=== PATIENT | female | born 1955 | race Caucasian/White ===

== ENCOUNTER 2017-07-08 06:03 | Day surgery (SDC) | payer MEDICAID ==
[~2017-07-08] VITALS: Ht 170.2 cm; Wt 116.1 kg
[~2017-07-08 06:03] MED LIST: ATOR10 PO; CYCL5TAB PO; ESTR1PAT87 PO; GABA-529 PO; LEVO75TA10 PO; LORA2TAB2 PO; VENL100T4 PO; VENL75TA63 PO
[2017-07-08] MEDS ORDERED: SODIUM CHLORIDE 0.9% 1000ML 1,000 ML IV ONE (06:04)
[2017-07-08 07:06] VITALS: BP 148/80
[2017-07-08] MEDS ORDERED: MVIT PO (07:19)
[2017-07-08] MEDS ORDERED: VITA100C5 PO (07:19)
[2017-07-08] MEDS ORDERED: FENTANYL CITRATE PF 50 MCG/1 ML 2ML VIAL ONE (09:19)
[2017-07-08] MEDS ORDERED: PROPOFOL 10 MG/ML 20ML VIAL IV ONE (09:19)
[2017-07-08 09:54] VITALS: BP 150/85
== END 2017-07-08 10:24 | disposition home or self-care (01) ==
LOC: DAH 06:03 → ENDO 06:03
PROVIDERS: ATTEND Internal Medicine
DX: D12.0 Benign neoplasm of cecum (principal); K31.9 Disease of stomach and duodenum, unspecified; K29.50 Unspecified chronic gastritis without bleeding; K21.9 Gastro-esophageal reflux disease without esophagitis; L53.8 Other specified erythematous conditions; R13.10 Dysphagia, unspecified; D17.5 Benign lipomatous neoplasm of intra-abdominal organs; K64.8 Other hemorrhoids; K57.30 Diverticulosis of large intestine without perforation or abscess without bleeding; Z79.899 Other long term (current) drug therapy; E78.4 Other hyperlipidemia; F41.8 Other specified anxiety disorders; M19.90 Unspecified osteoarthritis, unspecified site; E03.8 Other specified hypothyroidism
CPT/HCPCS: 43239; 45385; 88305; 88312; A4606; A4649; J2704; J3010; J7030

== ENCOUNTER 2020-05-18 20:59 | Inpatient (IN) | payer MEDICARE ==
[~2020-05-18] VITALS: Ht 170.2 cm; Wt 126.7 kg
[~2020-05-18 20:59] MED LIST changes: +MVIT PO; +VENL-191 PO; -VENL75TA63 PO; +VITA100C5 PO
[2020-05-18 21:25] LABS: BASOPHILS % (AUTO) 0.2 % (0.0-5.0); EOSINOPHILS % (AUTO) 2.7 % (0.0-8.0); HEMATOCRIT 44.1 % (36-48); LYMPHOCYTES % (AUTO) 14.7 % (21.0-51.0); MEAN CORPUSCULAR HEMOGLOBIN 28.1 pg (27.0-33.0); MEAN CORPUSCULAR HGB CONC 31.1 g/dL (32.0-36.0); MEAN CORPUSCULAR VOLUME 90.6 fL (79-99); MONOCYTES % (AUTO) 5.9 % (3.0-13.0); NEUTROPHILS % (AUTO) 76.1 % (40.0-77.0); PLATELET COUNT (AUTO) 290 K/uL (130-400); RED BLOOD CELL COUNT(AUTO) 4.87 MIL/uL (4.00-5.50); WHITE BLOOD COUNT (AUTO) 17.6 K/uL (4.8-10.8)
[2020-05-18 21:26] LABS: APPEARANCE,URINE Clear (CLEAR); BILIRUBIN,URINE Negative (NEGATIVE); COLOR,URINE Yellow (YELLOW); GLUCOSE, URINE (UA) Negative (NEGATIVE); KETONES,URINE Negative (NEGATIVE); LEUKOCYTE ESTERASE ,URINE Large (NEGATIVE); NITRATE,URINE Negative (NEGATIVE); OCCULT BLOOD,URINE Small (NEGATIVE); PROTEIN,URINE Negative (NEGATIVE); UROBILINOGEN,URINE 0.2 mg/dL (0.2-1.0)
[2020-05-18 21:36] LABS: BACTERIA,URINE Few /HPF (None Seen); SQUAMOUS EPITHELIAL CELL,UR Few /HPF (0-2)
[2020-05-18 22:13] LABS: CREATININE 0.9 mg/dL (0.5-1.5); POTASSIUM 4.1 mmol/L (3.5-5.1)
[2020-05-18 22:18] LABS: ALBUMIN 2.4 g/dL (3.5-5.0); BILIRUBIN,TOTAL 0.3 mg/dL (0.2-1.0); TOTAL PROTEIN, SERUM 6.6 g/dL (6.0-8.3)
[2020-05-18] MEDS ORDERED: IOHEXOL-350 75 ML VIAL IV ONE (22:26)
[2020-05-19] VITALS (7 sets, daily range): BP systolic 86–140; BP diastolic 46–75
[2020-05-19] MEDS ORDERED: ZOSYN 3.375GM+NS 50ML 50 ML IV ONE ×3 (00:12→14:16)
[2020-05-19] MEDS ORDERED: ONDANSETRON 4MG INJ ONE (00:34)
[2020-05-19] MEDS ORDERED: FENTANYL CITRATE PF 50 MCG/1 ML 2ML VIAL ONE (00:35)
[2020-05-19] MEDS ORDERED: ONDANSETRON 4MG INJ IVP PRN (01:00)
[2020-05-19] MEDS: 0.9%NACL 1000ML 1,000 ML IV SCH ×3 (01:00→21:00)
[2020-05-19] MEDS ORDERED: MORPHINE 4 MG SYG IVP PRN (01:00)
[2020-05-19] MEDS ORDERED: MORPHINE 2 MG SYG IVP PRN (01:00)
[2020-05-19] MEDS ORDERED: PANT40SU PO (03:19)
[2020-05-19] MEDS ORDERED: LEVO100C4 PO (03:19)
[2020-05-19] MEDS ORDERED: NAPR-1023 PO (03:19)
[2020-05-19 05:40] LABS: HEMATOCRIT 39.4 % (36-48); MEAN CORPUSCULAR VOLUME 90.6 fL (79-99); PLATELET COUNT (AUTO) 274 K/uL (130-400); RED BLOOD CELL COUNT(AUTO) 4.35 MIL/uL (4.00-5.50); WHITE BLOOD COUNT (AUTO) 14.4 K/uL (4.8-10.8)
[2020-05-19] MEDS: PIP/TAZ ZOSYN 3.375G 3.375 GM VIAL IV SCH ×3 (05:50→22:00)
[2020-05-19 06:11] LABS: ALBUMIN 2.5 g/dL (3.5-5.0); BILIRUBIN,TOTAL 0.5 mg/dL (0.2-1.0); CREATININE 0.8 mg/dL (0.5-1.5); POTASSIUM 4.2 mmol/L (3.5-5.1); TOTAL PROTEIN, SERUM 6.7 g/dL (6.0-8.3)
[2020-05-19 06:37] LABS: CRP QUANTITATIVE 161.8 mg/L (0.00-9.0)
[2020-05-19 06:52] LABS: ERYTHROCYTE SEDIMENTATION RATE 65 MM/HR (0-30)
[2020-05-19] MEDS: ZOSYN 3.375GM+NS 50ML 50 ML IV SCH (22:11)
[2020-05-19] MEDS: HYDROMORPHONE 0.5 MG SYG (0.5MG/0.5ML) IVP PRN (22:17)
[2020-05-20] MEDS: 0.9%NACL 1000ML 1,000 ML IV SCH ×4 (02:33→20:04)
[2020-05-20] MEDS: HYDROMORPHONE 2 MG VIAL (2MG/ML) IVP PRN ×2 (02:34→09:43)
[2020-05-20 04:21] VITALS: BP 115/62
[2020-05-20] MEDS: ZOSYN 3.375GM+NS 50ML 50 ML IV SCH ×3 (05:11→20:03)
[2020-05-20 05:45] LABS: BASOPHILS % (AUTO) 0.2 % (0.0-5.0); EOSINOPHILS % (AUTO) 2.2 % (0.0-8.0); HEMATOCRIT 39.6 % (36-48); LYMPHOCYTES % (AUTO) 17.3 % (21.0-51.0); MEAN CORPUSCULAR HEMOGLOBIN 27.8 pg (27.0-33.0); MEAN CORPUSCULAR HGB CONC 30.3 g/dL (32.0-36.0); MEAN CORPUSCULAR VOLUME 91.9 fL (79-99); MONOCYTES % (AUTO) 5.4 % (3.0-13.0); NEUTROPHILS % (AUTO) 74.6 % (40.0-77.0); PLATELET COUNT (AUTO) 281 K/uL (130-400); RED BLOOD CELL COUNT(AUTO) 4.31 MIL/uL (4.00-5.50); WHITE BLOOD COUNT (AUTO) 12.5 K/uL (4.8-10.8)
[2020-05-20 06:01] LABS: ALBUMIN 2.5 g/dL (3.5-5.0); BILIRUBIN,TOTAL 0.5 mg/dL (0.2-1.0); CREATININE 0.8 mg/dL (0.5-1.5); TOTAL PROTEIN, SERUM 7.1 g/dL (6.0-8.3)
[2020-05-20 08:10] VITALS: BP 140/61
[2020-05-20 11:53] VITALS: BP 124/70
[2020-05-20] MEDS: FLUCONAZOLE 200 MG/NS 100 ML 100 ML IV SCH (13:39)
[2020-05-20] MEDS: HYDROMORPHONE 0.5 MG SYG (0.5MG/0.5ML) IVP PRN (14:40)
[2020-05-20 16:31] VITALS: BP 114/61
[2020-05-20] MEDS: ONDANSETRON 4MG INJ IVP PRN (19:45)
[2020-05-20 20:16] VITALS: BP 120/63
[2020-05-20 23:37] VITALS: BP 153/82
[2020-05-21] MEDS: 0.9%NACL 1000ML 1,000 ML IV SCH ×3 (02:37→23:30)
[2020-05-21 04:13] VITALS: BP 128/69
[2020-05-21 05:14] LABS: BASOPHILS % (AUTO) 0.2 % (0.0-5.0); EOSINOPHILS % (AUTO) 1.6 % (0.0-8.0); HEMATOCRIT 38.8 % (36-48); LYMPHOCYTES % (AUTO) 14.4 % (21.0-51.0); MEAN CORPUSCULAR HEMOGLOBIN 28.4 pg (27.0-33.0); MEAN CORPUSCULAR HGB CONC 31.2 g/dL (32.0-36.0); MEAN CORPUSCULAR VOLUME 91.1 fL (79-99); MONOCYTES % (AUTO) 4.9 % (3.0-13.0); NEUTROPHILS % (AUTO) 78.5 % (40.0-77.0); PLATELET COUNT (AUTO) 266 K/uL (130-400); RED BLOOD CELL COUNT(AUTO) 4.26 MIL/uL (4.00-5.50); RED CELL DISTRIBUTION WIDTH 12.7 % (11.0-15.5); WHITE BLOOD COUNT (AUTO) 11.1 K/uL (4.8-10.8)
[2020-05-21 05:28] LABS: ALBUMIN 2.3 g/dL (3.5-5.0); BILIRUBIN,TOTAL 0.4 mg/dL (0.2-1.0); CREATININE 0.8 mg/dL (0.5-1.5); POTASSIUM 3.6 mmol/L (3.5-5.1); TOTAL PROTEIN, SERUM 6.8 g/dL (6.0-8.3)
[2020-05-21] MEDS: ZOSYN 3.375GM+NS 50ML 50 ML IV SCH ×3 (05:58→20:54)
[2020-05-21] MEDS ORDERED: IOHEXOL 350 MG/ML 100ML INFUS..BTL IV ONE (07:43)
[2020-05-21 08:06] VITALS: BP 125/55
[2020-05-21 11:23] VITALS: BP 155/69
[2020-05-21] MEDS: FLUCONAZOLE 200 MG/NS 100 ML 100 ML IV SCH (12:05)
[2020-05-21] MEDS: ONDANSETRON 4MG INJ IVP PRN ×3 (12:12→20:53)
[2020-05-21 16:32] VITALS: BP 135/70
[2020-05-21] MEDS: HYDROMORPHONE 0.5 MG SYG (0.5MG/0.5ML) IVP PRN (17:15)
[2020-05-21 20:00] VITALS: BP 160/92
[2020-05-21] MEDS ORDERED: HYDROMORPHONE 2 MG VIAL (2MG/ML) ONE (20:49)
[2020-05-21] MEDS ORDERED: ONDANSETRON 4MG INJ IVP SCH (21:00)
[2020-05-21] MEDS ORDERED: HYDROMORPHONE 1 MG INJ IVP SCH (21:00)
[2020-05-22 00:04] VITALS: BP 118/52
[2020-05-22] MEDS: ONDANSETRON 4MG INJ IVP PRN ×2 (03:18→13:34)
[2020-05-22 04:08] VITALS: BP 143/79
[2020-05-22] MEDS: ZOSYN 3.375GM+NS 50ML 50 ML IV SCH ×3 (05:08→21:22)
[2020-05-22 05:09] LABS: BASOPHILS % (AUTO) 0.1 % (0.0-5.0); EOSINOPHILS % (AUTO) 0.2 % (0.0-8.0); HEMATOCRIT 40.3 % (36-48); LYMPHOCYTES % (AUTO) 7.4 % (21.0-51.0); MEAN CORPUSCULAR HEMOGLOBIN 27.9 pg (27.0-33.0); MEAN CORPUSCULAR HGB CONC 31.3 g/dL (32.0-36.0); MEAN CORPUSCULAR VOLUME 89.2 fL (79-99); MONOCYTES % (AUTO) 4.2 % (3.0-13.0); NEUTROPHILS % (AUTO) 87.5 % (40.0-77.0); PLATELET COUNT (AUTO) 270 K/uL (130-400); RED BLOOD CELL COUNT(AUTO) 4.52 MIL/uL (4.00-5.50); RED CELL DISTRIBUTION WIDTH 12.4 % (11.0-15.5); WHITE BLOOD COUNT (AUTO) 14.7 K/uL (4.8-10.8)
[2020-05-22 05:34] LABS: ALBUMIN 2.4 g/dL (3.5-5.0); BILIRUBIN,TOTAL 0.4 mg/dL (0.2-1.0); CREATININE 0.7 mg/dL (0.5-1.5); CRP QUANTITATIVE 102.6 mg/L (0.00-9.0); POTASSIUM 3.5 mmol/L (3.5-5.1); TOTAL PROTEIN, SERUM 7.2 g/dL (6.0-8.3)
[2020-05-22 08:33] VITALS: BP 155/62
[2020-05-22] MEDS: 0.9%NACL 1000ML 1,000 ML IV SCH ×2 (09:00→20:22)
[2020-05-22 11:22] VITALS: BP 146/73
[2020-05-22] MEDS: FLUCONAZOLE 200 MG/NS 100 ML 100 ML IV SCH (11:49)
[2020-05-22] MEDS: HYDROMORPHONE 2 MG VIAL (2MG/ML) IVP PRN (11:49)
[2020-05-22 16:17] VITALS: BP 131/77
[2020-05-22] MEDS ORDERED: ONDANSETRON 4MG INJ IVP SCH (17:40)
[2020-05-22 20:16] VITALS: BP 169/79
[2020-05-22] MEDS: FAMOTIDINE 20MG VIAL IV SCH (20:23)
[2020-05-22] MEDS: ATORVASTATIN 10 MG TABLET PO SCH (20:27)
[2020-05-22] MEDS: LORAZEPAM 2 MG TABLET PO SCH (20:27)
[2020-05-23] VITALS (7 sets, daily range): BP systolic 117–167; BP diastolic 45–94
[2020-05-23] MEDS ORDERED: LABETALOL 20MG SYG IV PRN (01:00)
[2020-05-23] MEDS: 0.9%NACL 1000ML 1,000 ML IV SCH ×2 (04:14→15:00)
[2020-05-23 05:16] LABS: BASOPHILS % (AUTO) 0.2 % (0.0-5.0); EOSINOPHILS % (AUTO) 1.5 % (0.0-8.0); HEMATOCRIT 38.6 % (36-48); LYMPHOCYTES % (AUTO) 14.3 % (21.0-51.0); MEAN CORPUSCULAR HEMOGLOBIN 27.9 pg (27.0-33.0); MEAN CORPUSCULAR HGB CONC 31.6 g/dL (32.0-36.0); MEAN CORPUSCULAR VOLUME 88.3 fL (79-99); MONOCYTES % (AUTO) 5.1 % (3.0-13.0); NEUTROPHILS % (AUTO) 78.5 % (40.0-77.0); PLATELET COUNT (AUTO) 322 K/uL (130-400); RED BLOOD CELL COUNT(AUTO) 4.37 MIL/uL (4.00-5.50); RED CELL DISTRIBUTION WIDTH 12.3 % (11.0-15.5); WHITE BLOOD COUNT (AUTO) 11.4 K/uL (4.8-10.8)
[2020-05-23] MEDS: ZOSYN 3.375GM+NS 50ML 50 ML IV SCH ×3 (05:46→20:49)
[2020-05-23 05:47] LABS: CREATININE 0.6 mg/dL (0.5-1.5); POTASSIUM 3.6 mmol/L (3.5-5.1)
[2020-05-23] MEDS: LEVOTHYROXINE 100 MCG TABLET PO SCH (06:41)
[2020-05-23] MEDS ORDERED: VENLAFAXINE HCL 150 MG PO SCH (09:00)
[2020-05-23] MEDS ORDERED: VENLAFAXINE HCL 75 MG TAB PO SCH (09:00)
[2020-05-23] MEDS: FAMOTIDINE 20MG VIAL IV SCH ×2 (09:53→20:49)
[2020-05-23] MEDS: ONDANSETRON 4MG INJ IVP PRN (11:52)
[2020-05-23] MEDS: FLUCONAZOLE 200 MG/NS 100 ML 100 ML IV SCH (13:54)
[2020-05-23] MEDS: ATORVASTATIN 10 MG TABLET PO SCH (20:48)
[2020-05-23] MEDS: LORAZEPAM 2 MG TABLET PO SCH (20:50)
[2020-05-24] VITALS (7 sets, daily range): BP systolic 123–153; BP diastolic 59–85
[2020-05-24] MEDS: 0.9%NACL 1000ML 1,000 ML IV SCH ×3 (01:00→21:20)
[2020-05-24] MEDS: ZOSYN 3.375GM+NS 50ML 50 ML IV SCH ×3 (06:22→21:20)
[2020-05-24] MEDS ORDERED: IOHEXOL-350 75 ML VIAL IV ONE (08:44)
[2020-05-24] MEDS ORDERED: VENLAFAXINE HCL 75 MG TAB PO SCH (09:00)
[2020-05-24] MEDS: FAMOTIDINE 20MG VIAL IV SCH ×2 (10:48→21:20)
[2020-05-24] MEDS: VENLAFAXINE HCL 75 MG TAB PO SCH (10:49)
[2020-05-24] MEDS: LEVOTHYROXINE 100 MCG TABLET PO SCH (10:50)
[2020-05-24] MEDS: FLUCONAZOLE 200 MG/NS 100 ML 100 ML IV SCH (13:19)
[2020-05-24] MEDS: ATORVASTATIN 10 MG TABLET PO SCH (21:20)
[2020-05-24] MEDS: LORAZEPAM 2 MG TABLET PO SCH (21:20)
[2020-05-25 04:00] VITALS: BP 150/81
[2020-05-25] MEDS: LEVOTHYROXINE 100 MCG TABLET PO SCH (05:16)
[2020-05-25] MEDS: ZOSYN 3.375GM+NS 50ML 50 ML IV SCH ×3 (05:16→20:37)
[2020-05-25 06:01] LABS: BASOPHILS % (AUTO) 0.2 % (0.0-5.0); EOSINOPHILS % (AUTO) 3.7 % (0.0-8.0); HEMATOCRIT 40.1 % (36-48); LYMPHOCYTES % (AUTO) 16.8 % (21.0-51.0); MEAN CORPUSCULAR HEMOGLOBIN 28.1 pg (27.0-33.0); MEAN CORPUSCULAR HGB CONC 32.2 g/dL (32.0-36.0); MEAN CORPUSCULAR VOLUME 87.4 fL (79-99); MONOCYTES % (AUTO) 6.1 % (3.0-13.0); NEUTROPHILS % (AUTO) 72.8 % (40.0-77.0); PLATELET COUNT (AUTO) 333 K/uL (130-400); RED BLOOD CELL COUNT(AUTO) 4.59 MIL/uL (4.00-5.50); RED CELL DISTRIBUTION WIDTH 12.5 % (11.0-15.5); WHITE BLOOD COUNT (AUTO) 8.6 K/uL (4.8-10.8)
[2020-05-25 06:23] LABS: CREATININE 0.8 mg/dL (0.5-1.5)
[2020-05-25 06:34] LABS: POTASSIUM 2.9 mmol/L (3.5-5.1)
[2020-05-25] MEDS: 0.9%NACL 1000ML 1,000 ML IV SCH ×2 (07:00→17:00)
[2020-05-25] MEDS: POTASSIUM CHLORIDE 10% ELIXIR 20 MEQ/15 ML UDCUP PO SCH ×2 (07:15→14:00)
[2020-05-25] MEDS ORDERED: POTASSIUM CHLORIDE 20MEQ/100ML 100 ML IV PRN (07:15)
[2020-05-25] MEDS ORDERED: LIDOCAINE HCL-MPF 1% 2ML VIAL IV PRN (07:15)
[2020-05-25 08:00] VITALS: BP 151/82
[2020-05-25] MEDS: FAMOTIDINE 20MG VIAL IV SCH ×2 (09:07→20:37)
[2020-05-25] MEDS: VENLAFAXINE HCL 75 MG TAB PO SCH (09:08)
[2020-05-25] MEDS: KCL 20 MEQ ERTAB PO PRN ×4 (09:09→18:15)
[2020-05-25 11:05] VITALS: BP 163/95
[2020-05-25] MEDS: FLUCONAZOLE 200 MG/NS 100 ML 100 ML IV SCH (12:51)
[2020-05-25 16:12] VITALS: BP 156/89
[2020-05-25 20:09] VITALS: BP 124/81
[2020-05-25] MEDS: ATORVASTATIN 10 MG TABLET PO SCH (20:37)
[2020-05-25] MEDS: POTASSIUM CHLORIDE 10% ELIXIR 20 MEQ/15 ML UDCUP PO PRN ×2 (20:40→21:35)
[2020-05-25] MEDS: LORAZEPAM 2 MG TABLET PO SCH (20:40)
[2020-05-25] MEDS: HYDROMORPHONE 2 MG VIAL (2MG/ML) IVP PRN (23:29)
[2020-05-25 23:43] VITALS: BP 151/75
[2020-05-26] MEDS: 0.9%NACL 1000ML 1,000 ML IV SCH ×2 (03:00→13:00)
[2020-05-26 03:40] VITALS: BP 123/69
[2020-05-26] MEDS: ZOSYN 3.375GM+NS 50ML 50 ML IV SCH ×3 (05:44→21:53)
[2020-05-26] MEDS: HYDROMORPHONE 2 MG VIAL (2MG/ML) IVP PRN ×3 (06:25→21:55)
[2020-05-26] MEDS: POTASSIUM CHLORIDE 10% ELIXIR 20 MEQ/15 ML UDCUP PO SCH ×2 (07:15→14:00)
[2020-05-26] MEDS ORDERED: IOHEXOL-350 75 ML VIAL IV ONE (07:16)
[2020-05-26] MEDS ORDERED: DIATR MEGLU/DIATRIZOATE SODIUM 30 ML BOTTLE ONE (07:16)
[2020-05-26] MEDS: LEVOTHYROXINE 100 MCG TABLET PO SCH (07:30)
[2020-05-26 07:52] LABS: HEMATOCRIT 41.5 % (36-48); MEAN CORPUSCULAR HEMOGLOBIN 28.1 pg (27.0-33.0); MEAN CORPUSCULAR VOLUME 87.7 fL (79-99); RED BLOOD CELL COUNT(AUTO) 4.73 MIL/uL (4.00-5.50); WHITE BLOOD COUNT (AUTO) 12.2 K/uL (4.8-10.8)
[2020-05-26 08:00] VITALS: BP 125/77
[2020-05-26 08:09] LABS: CREATININE 0.8 mg/dL (0.5-1.5); POTASSIUM 3.9 mmol/L (3.5-5.1)
[2020-05-26] MEDS: VENLAFAXINE HCL 75 MG TAB PO SCH (09:00)
[2020-05-26] MEDS ORDERED: IOHEXOL 350 MG/ML 100ML INFUS..BTL IV ONE (11:40)
[2020-05-26 11:46] VITALS: BP 127/67
[2020-05-26] MEDS: FLUCONAZOLE 200 MG/NS 100 ML 100 ML IV SCH (13:13)
[2020-05-26] MEDS: FAMOTIDINE 20MG VIAL IV SCH ×2 (13:15→21:53)
[2020-05-26 16:00] VITALS: BP 121/71
[2020-05-26 19:46] VITALS: BP 135/57
[2020-05-26] MEDS: ATORVASTATIN 10 MG TABLET PO SCH (21:53)
[2020-05-26] MEDS: LORAZEPAM 2 MG TABLET PO SCH (21:53)
[2020-05-26 23:58] VITALS: BP 147/82
[2020-05-27] MEDS ORDERED: HYDROMORPHONE 0.5 MG SYG (0.5MG/0.5ML) ONE (04:26)
[2020-05-27] MEDS: 0.9%NACL 1000ML 1,000 ML IV SCH ×3 (04:33→19:00)
[2020-05-27] MEDS: ZOSYN 3.375GM+NS 50ML 50 ML IV SCH ×3 (04:34→21:36)
[2020-05-27 05:03] LABS: BASOPHILS % (AUTO) 0.1 % (0.0-5.0); EOSINOPHILS % (AUTO) 0.5 % (0.0-8.0); HEMATOCRIT 47.4 % (36-48); LYMPHOCYTES % (AUTO) 7.8 % (21.0-51.0); MEAN CORPUSCULAR HEMOGLOBIN 27.7 pg (27.0-33.0); MEAN CORPUSCULAR HGB CONC 31.2 g/dL (32.0-36.0); MEAN CORPUSCULAR VOLUME 88.6 fL (79-99); MONOCYTES % (AUTO) 4.9 % (3.0-13.0); NEUTROPHILS % (AUTO) 86.3 % (40.0-77.0); PLATELET COUNT (AUTO) 348 K/uL (130-400); RED BLOOD CELL COUNT(AUTO) 5.35 MIL/uL (4.00-5.50); RED CELL DISTRIBUTION WIDTH 13.1 % (11.0-15.5); WHITE BLOOD COUNT (AUTO) 14.7 K/uL (4.8-10.8)
[2020-05-27 05:22] VITALS: BP 139/84
[2020-05-27 05:31] LABS: CREATININE 0.9 mg/dL (0.5-1.5); POTASSIUM 3.3 mmol/L (3.5-5.1)
[2020-05-27] MEDS ORDERED: KETOROLAC 15MG/ML VIAL (15MG/ML) ONE (07:09)
[2020-05-27] MEDS: LEVOTHYROXINE 100 MCG TABLET PO SCH (07:14)
[2020-05-27 08:08] VITALS: BP 171/86
[2020-05-27] MEDS: POTASSIUM CHLORIDE 10% ELIXIR 20 MEQ/15 ML UDCUP PO SCH (08:19)
[2020-05-27] MEDS: VENLAFAXINE HCL 75 MG TAB PO SCH (09:51)
[2020-05-27] MEDS: FAMOTIDINE 20MG VIAL IV SCH ×2 (09:51→21:36)
[2020-05-27] MEDS: KCL 20 MEQ ERTAB PO PRN ×3 (09:54→12:38)
[2020-05-27] MEDS: FLUCONAZOLE 200 MG/NS 100 ML 100 ML IV SCH (10:24)
[2020-05-27 11:28] VITALS: BP 142/80
[2020-05-27] MEDS: HYDROMORPHONE 0.5 MG SYG (0.5MG/0.5ML) IVP PRN ×3 (12:47→21:36)
[2020-05-27 16:39] VITALS: BP 150/72
[2020-05-27] MEDS: KETOROLAC 15MG/ML VIAL (15MG/ML) IV PRN (17:59)
[2020-05-27 20:00] VITALS: BP 151/84
[2020-05-27] MEDS: LORAZEPAM 2 MG TABLET PO SCH (21:36)
[2020-05-27] MEDS: ATORVASTATIN 10 MG TABLET PO SCH (21:36)
[2020-05-27] MEDS: ONDANSETRON 4MG INJ IVP PRN (21:45)
[2020-05-27 23:52] VITALS: BP 137/72
[2020-05-28] MEDS: HYDROMORPHONE 0.5 MG SYG (0.5MG/0.5ML) IVP PRN ×4 (01:45→20:32)
[2020-05-28] MEDS: 0.9%NACL 1000ML 1,000 ML IV SCH ×2 (01:46→14:26)
[2020-05-28 04:00] VITALS: BP 150/79
[2020-05-28] MEDS: KETOROLAC 15MG/ML VIAL (15MG/ML) IV PRN ×2 (04:41→16:15)
[2020-05-28] MEDS: LEVOTHYROXINE 100 MCG TABLET PO SCH (06:05)
[2020-05-28] MEDS: ZOSYN 3.375GM+NS 50ML 50 ML IV SCH ×2 (06:05→14:24)
[2020-05-28 06:09] LABS: BASOPHILS % (AUTO) 0.3 % (0.0-5.0); EOSINOPHILS % (AUTO) 1.9 % (0.0-8.0); HEMATOCRIT 37.7 % (36-48); LYMPHOCYTES % (AUTO) 10.6 % (21.0-51.0); MEAN CORPUSCULAR HEMOGLOBIN 27.7 pg (27.0-33.0); MEAN CORPUSCULAR HGB CONC 31.6 g/dL (32.0-36.0); MEAN CORPUSCULAR VOLUME 87.7 fL (79-99); MONOCYTES % (AUTO) 7.3 % (3.0-13.0); NEUTROPHILS % (AUTO) 79.6 % (40.0-77.0); PLATELET COUNT (AUTO) 302 K/uL (130-400); WHITE BLOOD COUNT (AUTO) 10.3 K/uL (4.8-10.8)
[2020-05-28 06:37] LABS: CREATININE 0.7 mg/dL (0.5-1.5); POTASSIUM 3.7 mmol/L (3.5-5.1)
[2020-05-28] MEDS: POTASSIUM CHLORIDE 10% ELIXIR 20 MEQ/15 ML UDCUP PO SCH (08:57)
[2020-05-28 08:58] VITALS: BP 152/82
[2020-05-28] MEDS: FAMOTIDINE 20MG VIAL IV SCH ×2 (08:59→20:23)
[2020-05-28] MEDS: VENLAFAXINE HCL 75 MG TAB PO SCH (09:00)
[2020-05-28] MEDS: FLUCONAZOLE 200 MG/NS 100 ML 100 ML IV SCH (09:07)
[2020-05-28 11:45] VITALS: BP 90/53
[2020-05-28 16:20] VITALS: BP 149/78
[2020-05-28] MEDS: LORAZEPAM 2 MG TABLET PO SCH (20:23)
[2020-05-28] MEDS: ATORVASTATIN 10 MG TABLET PO SCH (20:23)
[2020-08-19] MEDS ORDERED: AMOX-429 PO (13:19)
[2021-01-12] MEDS ORDERED: ESOM40CA54 PO (14:08)
[2021-01-12] MEDS ORDERED: ONDA4TAB10 PO (14:08)
[2021-01-12] MEDS ORDERED: PROM25TA7 PO (14:08)
== END 2020-05-28 21:25 | DRG 391 ==
LOC: EDH 20:59 → EDHIP 21:00 → 3AH 05-19 02:17
PROVIDERS: ADMIT Internal Medicine; ATTEND Internal Medicine
DX: K57.20 Diverticulitis of large intestine with perforation and abscess without bleeding (principal); K65.1 Peritoneal abscess; Z68.41 Body mass index [BMI] 40.0-44.9, adult; Z20.822 Contact with and (suspected) exposure to COVID-19; E03.9 Hypothyroidism, unspecified; E66.01 Morbid (severe) obesity due to excess calories; E87.6 Hypokalemia; F32.9 Major depressive disorder, single episode, unspecified; F41.9 Anxiety disorder, unspecified; G89.4 Chronic pain syndrome; I10 Essential (primary) hypertension; K21.9 Gastro-esophageal reflux disease without esophagitis; K76.0 Fatty (change of) liver, not elsewhere classified; Z90.49 Acquired absence of other specified parts of digestive tract; Z90.710 Acquired absence of both cervix and uterus; Z82.3 Family history of stroke; Z83.3 Family history of diabetes mellitus; Z82.5 Family history of asthma and other chronic lower respiratory diseases; Z82.49 Family history of ischemic heart disease and other diseases of the circulatory system
CPT/HCPCS: 36415; 74177; 74178; 80048; 80053; 81001; 83605; 83690; 84132; 84145; 84443; 84484; 85025; 85027; 85651; 86140; 87040; 87088; 87426; 93005; G0378; J1170; J1450; J1885; J2405; J2543; J3010; J3480; J3490; J7030; Q9963; Q9967; U0003

== ENCOUNTER 2020-06-15 17:55 | Emergency (ER) | payer MEDICARE ==
[~2020-06-15 17:55] MED LIST changes: -ESTR1PAT87 PO; -GABA-529 PO; +LEVO100C4 PO; -LEVO75TA10 PO; -MVIT PO; +NAPR-1023 PO; +PANT40SU PO; -VITA100C5 PO
[2020-06-15] MEDS ORDERED: SODIUM CHLORIDE 0.9% 1000ML 1,000 ML IV ONE (18:17)
[2020-06-15] MEDS ORDERED: ACETAMINOPHEN EXTRA STRENGTH 500 MG TABLET ONE (18:17)
[2020-06-15 18:32] LABS: APPEARANCE,URINE CLOUDY (CLEAR); BASOPHILS % (AUTO) 0.4 % (0.0-5.0); BILIRUBIN,URINE NEGATIVE (NEGATIVE); COLOR,URINE YELLOW (YELLOW); EOSINOPHILS % (AUTO) 0.8 % (0.0-8.0); GLUCOSE, URINE (UA) NEGATIVE (NEGATIVE); HEMATOCRIT 43.9 % (36-48); KETONES,URINE NEGATIVE (NEGATIVE); LEUKOCYTE ESTERASE ,URINE MODERATE (NEGATIVE); LYMPHOCYTES % (AUTO) 13.9 % (21.0-51.0); MEAN CORPUSCULAR HEMOGLOBIN 28.7 pg (27.0-33.0); MEAN CORPUSCULAR HGB CONC 33.5 g/dL (32.0-36.0); MEAN CORPUSCULAR VOLUME 85.6 fL (79-99); MONOCYTES % (AUTO) 6.8 % (3.0-13.0); NEUTROPHILS % (AUTO) 77.7 % (40.0-77.0); NITRATE,URINE POSITIVE (NEGATIVE); OCCULT BLOOD,URINE MODERATE (NEGATIVE); PLATELET COUNT (AUTO) 304 K/uL (130-400); PROTEIN,URINE 30 mg/dL (NEGATIVE); RED BLOOD CELL COUNT(AUTO) 5.13 MIL/uL (4.00-5.50); RED CELL DISTRIBUTION WIDTH 13.3 % (11.0-15.5); UROBILINOGEN,URINE 0.2 mg/dL (0.2-1.0); WHITE BLOOD COUNT (AUTO) 14.1 K/uL (4.8-10.8)
[2020-06-15] MEDS ORDERED: CEFTRIAXONE SODIUM 1 GM ONE (18:46)
[2020-06-15 18:50] LABS: RAPID GROUP A STREP NEGATIVE (NEGATIVE)
[2020-06-15 19:06] LABS: B-TYPE NATRIURETIC PEPTIDE 112 pg/mL (0-100)
[2020-06-15 19:19] LABS: BILIRUBIN,TOTAL 0.4 mg/dL (0.2-1.0); TOTAL PROTEIN, SERUM 7.8 g/dL (6.0-8.3)
[2020-06-15 20:04] LABS: BACTERIA,URINE Moderate /HPF (None Seen); RBC,URINE None Seen /HPF (0-1); WBC,URINE >100 /HPF (0-1)
== END 2020-06-15 20:41 | disposition home or self-care (01) ==
LOC: EDH 17:55
DX: U07.1 COVID-19 (principal); N30.90 Cystitis, unspecified without hematuria; K21.9 Gastro-esophageal reflux disease without esophagitis; F41.9 Anxiety disorder, unspecified; G89.29 Other chronic pain; F32.9 Major depressive disorder, single episode, unspecified; Z90.49 Acquired absence of other specified parts of digestive tract; Z90.710 Acquired absence of both cervix and uterus
CPT/HCPCS: 36415; 71045; 80053; 81001; 83605; 83880; 84145; 85025; 87040 ×2; 87077; 87088; 87186; 87426; 87804 ×2; 87880; 96365; 96366; 99284; J0696; J7030

== ENCOUNTER 2020-06-16 20:01 | Emergency (ER) | payer MEDICARE ==
[2020-06-16] MEDS ORDERED: PROMETHAZINE HCL 25 MG/ML 1ML AMPULE IM ONE (20:02)
[2020-06-16] MEDS ORDERED: SODIUM CHLORIDE 0.9% 1000ML 1,000 ML IV ONE (20:02)
[2020-06-16] MEDS ORDERED: DICYCLOMINE HCL 10 MG/ML 2ML AMP IM ONE (20:26)
[2020-06-16 20:32] LABS: BASOPHILS % (AUTO) 0.4 % (0.0-5.0); EOSINOPHILS % (AUTO) 2.1 % (0.0-8.0); HEMATOCRIT 43.7 % (36-48); LYMPHOCYTES % (AUTO) 16.7 % (21.0-51.0); MEAN CORPUSCULAR HEMOGLOBIN 28.1 pg (27.0-33.0); MEAN CORPUSCULAR HGB CONC 32.7 g/dL (32.0-36.0); MEAN CORPUSCULAR VOLUME 85.9 fL (79-99); MONOCYTES % (AUTO) 7.8 % (3.0-13.0); NEUTROPHILS % (AUTO) 72.6 % (40.0-77.0); PLATELET COUNT (AUTO) 313 K/uL (130-400); RED BLOOD CELL COUNT(AUTO) 5.09 MIL/uL (4.00-5.50); RED CELL DISTRIBUTION WIDTH 13.4 % (11.0-15.5); WHITE BLOOD COUNT (AUTO) 15.8 K/uL (4.8-10.8)
[2020-06-16 20:46] LABS: POTASSIUM 3.6 mmol/L (3.5-5.1)
[2020-06-16] MEDS ORDERED: DIPHENOXYLATE HCL/ATROPINE 2.5/0.025 MG TAB PO ONE ×3 (20:49→21:30)
[2020-06-16 20:51] LABS: BILIRUBIN,TOTAL 0.4 mg/dL (0.2-1.0); TOTAL PROTEIN, SERUM 7.9 g/dL (6.0-8.3)
[2020-06-16] MEDS ORDERED: SODIUM CHLORIDE 0.9% 50 ML IV ONE (21:17)
== END 2020-06-16 22:39 | disposition home or self-care (01) ==
LOC: EDH 20:01
DX: K52.9 Noninfective gastroenteritis and colitis, unspecified (principal); K21.9 Gastro-esophageal reflux disease without esophagitis; F41.9 Anxiety disorder, unspecified; F32.9 Major depressive disorder, single episode, unspecified; Z88.6 Allergy status to analgesic agent; Z90.710 Acquired absence of both cervix and uterus; Z90.49 Acquired absence of other specified parts of digestive tract
CPT/HCPCS: 36415; 80053; 85025; 96361; 96365; 96372; 99284; J0500; J2550; J7030

== ENCOUNTER → 2020-07-22 | Outpatient (CLI) | payer MEDICARE | END | disposition home or self-care (01) | LOC: RAH 09:20 | PROVIDERS: ATTEND Internal Medicine | DX: K57.32 Diverticulitis of large intestine without perforation or abscess without bleeding (principal); Z90.711 Acquired absence of uterus with remaining cervical stump | CPT/HCPCS: 74178 ==

== ENCOUNTER 2020-10-09 00:58 | Emergency (ER) | payer MEDICARE ==
[~2020-10-09] VITALS: Ht 170.2 cm; Wt 117.0 kg
[~2020-10-09 00:58] MED LIST changes: +AMOX-429 PO; -NAPR-1023 PO; -PANT40SU PO; -VENL100T4 PO
== END 2020-10-09 03:34 | disposition home or self-care (01) ==
LOC: EDH 01:10
DX: K94.13 Enterostomy malfunction (principal); E78.00 Pure hypercholesterolemia, unspecified; E03.9 Hypothyroidism, unspecified; F32.9 Major depressive disorder, single episode, unspecified; F41.9 Anxiety disorder, unspecified; Z98.890 Other specified postprocedural states; Z79.899 Other long term (current) drug therapy
CPT/HCPCS: 99281

== ENCOUNTER 2020-10-09 20:58 | Emergency (ER) | payer MEDICARE ==
[~2020-10-09] VITALS: Ht 170.2 cm; Wt 112.0 kg
[2020-10-09 21:00] VITALS: BP 152/59
== END 2020-10-10 | disposition left against medical advice (07) ==
LOC: EDH 20:58
DX: Z53.21 Procedure and treatment not carried out due to patient leaving prior to being seen by health care provider (principal)

== ENCOUNTER 2021-01-13 06:47 | Day surgery (SDC) | payer MEDICARE ==
[~2021-01-13 06:47] MED LIST changes: +0.9%NACL 1000ML 1,000 ML IV ONE; -AMOX-429 PO; +ESOM40CA54 PO; +ONDA4TAB10 PO; +PROM25TA7 PO
[2021-01-13 07:00] VITALS: BP 153/85
[2021-01-13] MEDS ORDERED: PROPOFOL 10 MG/ML 20ML VIAL IV ONE (09:24)
[2021-01-13 09:40] VITALS: BP 126/64
[2021-01-13 09:45] VITALS: BP 136/67
[2021-01-13 09:50] VITALS: BP 139/70
[2021-01-13 09:55] VITALS: BP 140/70
[2021-01-13 10:10] VITALS: BP 142/73
== END 2021-01-13 10:10 | disposition home or self-care (01) ==
LOC: DAH 06:47 → ENDO 06:47
PROVIDERS: ATTEND Internal Medicine Gastroenterology
DX: R14.2 Eructation (principal); R11.2 Nausea with vomiting, unspecified; Z86.010 Personal history of colon polyps; K22.89 Other specified disease of esophagus; K20.90 Esophagitis, unspecified without bleeding; K29.50 Unspecified chronic gastritis without bleeding; E78.5 Hyperlipidemia, unspecified; K59.04 Chronic idiopathic constipation; E03.9 Hypothyroidism, unspecified; F32.9 Major depressive disorder, single episode, unspecified; F41.9 Anxiety disorder, unspecified; M19.90 Unspecified osteoarthritis, unspecified site; Z90.49 Acquired absence of other specified parts of digestive tract; Z90.710 Acquired absence of both cervix and uterus; Z88.1 Allergy status to other antibiotic agents; Z79.899 Other long term (current) drug therapy; Z98.890 Other specified postprocedural states; Z20.822 Contact with and (suspected) exposure to COVID-19
CPT/HCPCS: 43239; 87635; 88305; 88342; A4215 ×2; A4221; A4222; A4223; A4606; A4620; A4657; A4663; C9803; J2704; J7030

== ENCOUNTER → 2021-01-16 | Outpatient (CLI) | payer MEDICARE ==
[~2021-01-16] MED LIST changes: -0.9%NACL 1000ML 1,000 ML IV ONE
== END | disposition home or self-care (01) ==
LOC: SHCH 11:12
PROVIDERS: ATTEND Student in an Organized Health Care Education/Training Program
DX: R55 Syncope and collapse (principal); R06.02 Shortness of breath; R00.0 Tachycardia, unspecified; E66.9 Obesity, unspecified; E78.5 Hyperlipidemia, unspecified
CPT/HCPCS: 93306; 93356

== ENCOUNTER → 2021-03-04 | Outpatient (CLI) | payer MEDICARE ==
[~2021-03-04] MED LIST changes: +IOHEXOL 350 MG/ML 100ML INFUS..BTL IV ONE
== END | disposition home or self-care (01) ==
LOC: RAH 09:21
PROVIDERS: ATTEND Internal Medicine Gastroenterology
DX: R10.84 Generalized abdominal pain (principal); Z90.49 Acquired absence of other specified parts of digestive tract
CPT/HCPCS: 74178; Q9967

== ENCOUNTER 2021-12-14 20:51 | Emergency (ER) | payer MEDICARE ==
[~2021-12-14] VITALS: Ht 170.2 cm; Wt 113.4 kg
[~2021-12-14 20:51] MED LIST changes: -IOHEXOL 350 MG/ML 100ML INFUS..BTL IV ONE
[2021-12-14 20:52] VITALS: BP 156/79
[2021-12-14 21:19] LABS: BASOPHILS % (AUTO) 0.2 % (0.0-5.0); EOSINOPHILS % (AUTO) 2.2 % (0.0-8.0); HEMATOCRIT 44.7 % (36-48); LYMPHOCYTES % (AUTO) 18.8 % (21.0-51.0); MEAN CORPUSCULAR HEMOGLOBIN 27.7 pg (27.0-33.0); MEAN CORPUSCULAR HGB CONC 31.8 g/dL (32.0-36.0); MEAN CORPUSCULAR VOLUME 87.1 fL (79-99); MONOCYTES % (AUTO) 5.8 % (3.0-13.0); NEUTROPHILS % (AUTO) 72.7 % (40.0-77.0); PLATELET COUNT (AUTO) 258 K/uL (130-400); RED BLOOD CELL COUNT(AUTO) 5.13 MIL/uL (4.00-5.50); RED CELL DISTRIBUTION WIDTH 13.6 % (11.0-15.5); WHITE BLOOD COUNT (AUTO) 9.4 K/uL (4.8-10.8)
[2021-12-14 21:25] LABS: APPEARANCE,URINE CLEAR (CLEAR); BILIRUBIN,URINE NEGATIVE (NEGATIVE); COLOR,URINE YELLOW (YELLOW); GLUCOSE, URINE (UA) NEGATIVE (NEGATIVE); KETONES,URINE NEGATIVE (NEGATIVE); LEUKOCYTE ESTERASE ,URINE 75 Leu/uL (NEGATIVE); NITRATE,URINE NEGATIVE (NEGATIVE); OCCULT BLOOD,URINE SMALL (NEGATIVE); PROTEIN,URINE NEGATIVE (NEGATIVE); UROBILINOGEN,URINE 0.2 mg/dL (0.2-1.0)
[2021-12-14 21:26] LABS: POTASSIUM 4.1 mmol/L (3.5-5.1)
[2021-12-14 21:30] LABS: TOTAL PROTEIN, SERUM 7.4 g/dL (6.0-8.3)
[2021-12-14 21:33] LABS: MUCUS,URINE RARE LPF (None Seen); SQUAMOUS EPITHELIAL CELL,UR RARE /HPF (0-2)
[2021-12-14] MEDS ORDERED: CEFTRIAXONE 1G VIAL IM ONE (23:30)
[2021-12-14] MEDS ORDERED: CEFTRIAXONE 1G VIAL IVP ONE (23:30)
[2021-12-14] MEDS ORDERED: NITR100C4 PO (23:46)
[2021-12-15] MEDS ORDERED: MORPHINE 2 MG SYG IVP ONE
[2021-12-15] MEDS ORDERED: ACETAMINOPHEN 325 MG TAB PO ONE
[2021-12-15] MEDS ORDERED: NITROFURANTOIN MONOHYD/M-CRYST 100 MG CAPSULE PO ONE
[2021-12-15] MEDS ORDERED: MORPHINE 2 MG SYG IM ONE
== END 2021-12-15 00:17 | disposition home or self-care (01) ==
LOC: EDH 20:51
DX: N39.0 Urinary tract infection, site not specified (principal); E03.9 Hypothyroidism, unspecified; E78.00 Pure hypercholesterolemia, unspecified; F32.A Depression, unspecified; F41.9 Anxiety disorder, unspecified; I10 Essential (primary) hypertension; K21.9 Gastro-esophageal reflux disease without esophagitis; Z79.899 Other long term (current) drug therapy; Z88.1 Allergy status to other antibiotic agents; Z88.2 Allergy status to sulfonamides
CPT/HCPCS: 99284; 74176; 80053; 83690; 85025; 87088; 81001; 36415; 96372 ×2; J0696

== ENCOUNTER 2022-03-03 10:35 | Emergency (ER) | payer MEDICARE ==
[~2022-03-03] VITALS: Ht 170.2 cm; Wt 117.9 kg
[~2022-03-03 10:35] MED LIST changes: +NITR100C4 PO
[2022-03-03 10:48] VITALS: BP 166/96
[2022-03-03] MEDS ORDERED: ACETAMINOPHEN 500 MG TABLET PO ONE (12:00)
[2022-03-03] MEDS ORDERED: IBUPROFEN 800 MG TAB PO ONE (12:00)
[2022-03-03] MEDS ORDERED: AMOX/CLAV 875/125MG TAB PO ONE (12:30)
[2022-03-03] MEDS ORDERED: ALBUTEROL INHALER 90MCG/INH IH ONE (12:30)
[2022-03-03] MEDS ORDERED: AZITHROMYCIN 250 MG TABLET PO ONE (12:30)
[2022-03-03] MEDS ORDERED: SOLU-MEDROL 125MG VIAL IVP ONE (12:30)
[2022-03-03] MEDS ORDERED: 0.9%NACL 1000ML 1,000 ML IV SCH (14:00)
[2022-03-03] MEDS ORDERED: D-ME1POW16 PO (14:12)
[2022-03-03] MEDS ORDERED: IBUP-2070 PO (14:12)
[2022-03-03] MEDS ORDERED: ALBU6.7H14 IH (14:12)
[2022-03-03] MEDS ORDERED: PRED20TA3 PO (14:12)
== END 2022-03-03 14:48 | disposition home or self-care (01) ==
LOC: EDH 10:35
DX: U07.1 COVID-19 (principal); E86.0 Dehydration; F41.9 Anxiety disorder, unspecified; E78.00 Pure hypercholesterolemia, unspecified; I10 Essential (primary) hypertension; K21.9 Gastro-esophageal reflux disease without esophagitis
CPT/HCPCS: 99284; 96374; 71045; 96361; 87635; 87880; 87804 ×2; C9803; J2930 ×2

== ENCOUNTER 2022-11-05 20:08 | Emergency (ER) | payer MEDICARE ==
[~2022-11-05] VITALS: Ht 175.3 cm; Wt 122.5 kg
[~2022-11-05 20:08] MED LIST changes: -ATOR10 PO; +BENZ-226 PO; +BUDE0.256 IH; -CYCL5TAB PO; +IPRA3AMP24 IH; +LEVO-70 PO; -NITR100C4 PO; -ONDA4TAB10 PO; +PIND5 PO; +PRED20TA3 PO; -PROM25TA7 PO; -VENL-191 PO; +VENL-63 PO
[2022-11-05 21:17] LABS: BASOPHILS # (AUTO) 0.02 K/uL (0.00-0.20); BASOPHILS % (AUTO) 0.1 % (0.0-5.0); EOSINOPHILS # (AUTO) 0.39 K/uL (0.00-0.70); EOSINOPHILS % (AUTO) 2.9 % (0.0-8.0); HEMATOCRIT 38.7 % (36-48); IMMATURE GRANULOCYTE ABSOLUTE 0.09 K/uL (0-1); LYMPHOCYTES # (AUTO) 2.6 K/uL (1.0-4.8); MEAN CORPUSCULAR HEMOGLOBIN 25.4 pg (27.0-33.0); MEAN CORPUSCULAR HGB CONC 30.5 g/dL (32.0-36.0); MEAN CORPUSCULAR VOLUME 83.2 fL (79-99); MONOCYTES # (AUTO) 0.8 K/uL (0.1-1.0); MONOCYTES % (AUTO) 6.2 % (3.0-13.0); NEUTROPHILS # (AUTO) 9.6 K/uL (1.8-7.7); NEUTROPHILS % (AUTO) 71.1 % (40.0-77.0); PLATELET COUNT (AUTO) 406 K/uL (130-400); RED BLOOD CELL COUNT(AUTO) 4.65 MIL/uL (4.00-5.50); RED CELL DISTRIBUTION WIDTH 14.4 % (11.0-15.5); WHITE BLOOD COUNT (AUTO) 13.5 K/uL (4.8-10.8)
[2022-11-05 21:30] LABS: SARS-CoV-2, RNA, NAAT NEGATIVE SARS CoV-2 (NEGATIVE)
[2022-11-05 21:35] LABS: INFLUENZA TYPE A Negative For Type A (NEGATIVE); INFLUENZA TYPE B Negative For Type B (NEGATIVE)
[2022-11-05] MEDS ORDERED: SOLU-MEDROL 125MG VIAL ONE (21:48)
[2022-11-05 21:57] LABS: B-TYPE NATRIURETIC PEPTIDE 35 pg/mL (0-100)
[2022-11-05] MEDS ORDERED: SOLU-MEDROL 125MG VIAL IVP ONE (22:00)
[2022-11-05] MEDS ORDERED: IPRATROPIUM/ALBUTEROL SULFATE 3 ML SOLUTION IH ONE (22:00)
[2022-11-05 22:30] VITALS: PULSE 84; RESP 22
[2022-11-05] MEDS ORDERED: SODIUM CHLORIDE 3% FOR INHALATION 4 ML/AMP VIAL.NEB IH ONE (22:48)
[2022-11-05 23:10] LABS: ALBUMIN 2.9 g/dL (3.5-5.0); BILIRUBIN,TOTAL 0.2 mg/dL (0.2-1.0); MAGNESIUM 1.8 mg/dL (1.80-2.40)
[2022-11-05] MEDS ORDERED: ACETAMINOPHEN 325 MG TAB ONE (23:22)
[2022-11-05] MEDS ORDERED: ACETAMINOPHEN 325 MG TAB PO ONE (23:30)
[2022-11-06] MEDS ORDERED: IPRATROPIUM/ALBUTEROL SULFATE 3 ML SOLUTION IH ONE (00:30)
[2022-11-06] MEDS ORDERED: DOXYCYCLINE HYCLATE 100 MG TABLET PO SCH (00:30)
[2022-11-06 01:00] VITALS: PULSE 92; RESP 20
[2022-11-06 01:40] VITALS: BP 116/53; PULSE 84; RESP 18; O2SAT 96
[2022-11-06] MEDS ORDERED: ONDANSETRON 4MG INJ IVP ONE (02:30)
[2022-11-06] MEDS ORDERED: PRED20TA3 PO (02:48)
[2022-11-06] MEDS ORDERED: DOXY-469 PO (02:48)
[2022-11-06] MEDS ORDERED: BENZ-39 PO (02:48)
[2022-11-06] MEDS ORDERED: ALBU1.252 IH (02:48)
== END 2022-11-06 02:58 | disposition home or self-care (01) ==
LOC: EDH 20:08
DX: J45.901 Unspecified asthma with (acute) exacerbation (principal); F41.9 Anxiety disorder, unspecified; M19.90 Unspecified osteoarthritis, unspecified site; E78.00 Pure hypercholesterolemia, unspecified; F32.A Depression, unspecified; I10 Essential (primary) hypertension; Z79.51 Long term (current) use of inhaled steroids; Z79.52 Long term (current) use of systemic steroids; Z79.899 Other long term (current) drug therapy; Z88.1 Allergy status to other antibiotic agents; Z88.2 Allergy status to sulfonamides; Z90.49 Acquired absence of other specified parts of digestive tract; Z20.822 Contact with and (suspected) exposure to COVID-19
CPT/HCPCS: 99285; 96374; 71046; 87635; 83735; 80053; 83880; 85025; 87071; 87205; 87804 ×2; 83605; 36415; 93005; 84145; 96375; 94640 ×2; C9803; J2930; J2405

== ENCOUNTER → 2022-11-30 | Outpatient (CLI) | payer MEDICARE ==
[~2022-11-30] MED LIST changes: +ALBU1.252 IH; +BENZ-39 PO; +DOXY-469 PO
== END | disposition home or self-care (01) ==
LOC: SHCH 12:45
PROVIDERS: ATTEND Student in an Organized Health Care Education/Training Program
DX: R06.02 Shortness of breath (principal); E78.5 Hyperlipidemia, unspecified
CPT/HCPCS: 93306

== ENCOUNTER → 2023-02-23 | Outpatient (CLI) | payer MEDICARE ==
[2023-02-23 12:29] LABS: THYROID STIMULATING HORMONE 3.6 uIU/mL (0.36-3.74)
== END | disposition home or self-care (01) ==
LOC: LAB 10:44
PROVIDERS: ATTEND Student in an Organized Health Care Education/Training Program
DX: I47.10 Supraventricular tachycardia, unspecified (principal); E03.9 Hypothyroidism, unspecified; E78.5 Hyperlipidemia, unspecified; R42 Dizziness and giddiness; R06.02 Shortness of breath; R00.2 Palpitations; R11.0 Nausea; E66.9 Obesity, unspecified
CPT/HCPCS: 36415; 82670; 83001; 83002; 84144; 84402; 84403; 84443; 84481

== ENCOUNTER → 2023-03-21 | Outpatient (CLI) | payer MEDICARE ==
[2023-03-21 16:52] LABS: POTASSIUM 4.5 mmol/L (3.5-5.1)
== END | disposition home or self-care (01) ==
LOC: LAB 13:22
PROVIDERS: ATTEND Student in an Organized Health Care Education/Training Program
DX: R10.84 Generalized abdominal pain (principal)
CPT/HCPCS: 36415; 80048

== ENCOUNTER → 2023-05-09 | Outpatient (CLI) | payer MEDICARE ==
[2023-05-09 16:25] LABS: POTASSIUM 4.7 mmol/L (3.5-5.1)
== END | disposition home or self-care (01) ==
LOC: LAB 12:59
PROVIDERS: ATTEND Student in an Organized Health Care Education/Training Program
DX: R10.84 Generalized abdominal pain (principal)
CPT/HCPCS: 36415; 80048

== ENCOUNTER → 2024-02-17 | Outpatient (CLI) | payer MEDICARE ==
[~2024-02-17] VITALS: Ht 170.2 cm; Wt 106.8 kg
[~2024-02-17] MED LIST changes: +ATOR20TA65 PO; +CYCL-309 PO; -DOXY-469 PO; +DOXY100C61 PO; -ESOM40CA54 PO; +ESOM40CA66 PO; +VERA120T92 PO
[2024-02-17 12:40] VITALS: BP 139/75; PULSE 115; RESP 19; TEMP 97.5
[2024-02-17 12:57] LABS: BASOPHILS # (AUTO) 0.02 K/uL (0.00-0.20); BASOPHILS % (AUTO) 0.2 % (0.0-5.0); EOSINOPHILS # (AUTO) 0.28 K/uL (0.00-0.70); EOSINOPHILS % (AUTO) 2.7 % (0.0-8.0); HEMATOCRIT 40.6 % (36-48); IMMATURE GRANULOCYTE ABSOLUTE 0.04 K/uL (0-1); LYMPHOCYTES # (AUTO) 1.6 K/uL (1.0-4.8); MEAN CORPUSCULAR HEMOGLOBIN 22.6 pg (27.0-33.0); MEAN CORPUSCULAR HGB CONC 29.3 g/dL (32.0-36.0); MONOCYTES # (AUTO) 0.5 K/uL (0.1-1.0); MONOCYTES % (AUTO) 4.6 % (3.0-13.0); NEUTROPHILS # (AUTO) 7.8 K/uL (1.8-7.7); NEUTROPHILS % (AUTO) 76.1 % (40.0-77.0); PLATELET COUNT (AUTO) 386 K/uL (130-400); RED BLOOD CELL COUNT(AUTO) 5.27 MIL/uL (4.00-5.50); RED CELL DISTRIBUTION WIDTH 16.5 % (11.0-15.5); WHITE BLOOD COUNT (AUTO) 10.2 K/uL (4.8-10.8)
[2024-02-17 13:08] LABS: INR 1.01 (0.85-1.15); PROTHROMBIN TIME 10.9 SEC (9.6-11.6)
[2024-02-17 13:09] LABS: PARTIAL THROMBOPLASTIN TIME 27.1 SEC (26.3-35.5)
[2024-02-17 13:12] LABS: CREATININE 1.1 mg/dL (0.5-1.0); POTASSIUM 4.3 mmol/L (3.5-5.1)
== END | disposition home or self-care (01) ==
LOC: DAH 10:00 → EDSTATUS 02-21 11:00
PROVIDERS: ATTEND Internal Medicine Cardiovascular Disease
DX: Z01.812 Encounter for preprocedural laboratory examination (principal); I47.10 Supraventricular tachycardia, unspecified; I95.1 Orthostatic hypotension; I50.9 Heart failure, unspecified
CPT/HCPCS: 36415; 80048; 85025; 85610; 85730

== ENCOUNTER 2024-07-07 11:21 | Emergency (ER) | payer MEDICARE ==
[~2024-07-07] VITALS: Ht 170.2 cm; Wt 110.2 kg
[~2024-07-07 11:21] MED LIST changes: -ALBU1.252 IH; -BENZ-226 PO; -BENZ-39 PO; -BUDE0.256 IH; -DOXY100C61 PO; -IPRA3AMP24 IH; -LEVO-70 PO; -LEVO100C4 PO; +LEVO100C5 PO; -LORA2TAB2 PO; -PIND5 PO; -PRED20TA3 PO
--- NOTE | 2024-07-07 11:30 | ERN ---
ED Note History of Present Illness Stated Complaint: MECHANICAL FALL Chief Complaint: Hip Pain/Injury Time Seen by MD: 11:22 Dictation: PATIENT IS A 68-YEAR-OLD FEMALE HERE WE WILL POSTERIOR LEFT HIP PAIN STATUS POST SAME LEVEL SLIP FALL YESTERDAY. SHE STATES SHE HAD COME IN FROM SOME ERRANDS, WAS WASHING HER FEET AND WHEN SHE STEPPED OUT OF THE BATHTUB SHE DID A SPLIT AND HER RIGHT FOOT WENT FORWARD AND SHE LANDED ON HER LEFT BUTTOCKS POSTERIOR HIP AREA. NO SHORTENING OR ROTATION OF LEFT LEG SHE IS AMBULATORY WITH THE [facility]. DENIES ANY HISTORY OF PRIOR INJURY SURGERIES. Allergies: Coded Allergies: sulfamethoxazole (Unverified Allergy, Unknown, MOUTH SWELLS, 01/12/21) trimethoprim (Unverified Allergy, Unknown, MOUTH SWELLS, 01/12/21) Home Meds Reported Medications Cyclobenzaprine HCl (Cyclobenzaprine HCl) 10 Mg Tablet, 20 MG PO HS, TAB 02/17/24 Atorvastatin Calcium (Atorvastatin Calcium) 20 Mg Tablet, 20 MG PO HS, TAB 02/17/24 Verapamil HCl (Verapamil ER) 120 Mg Tablet.er, 120 MG PO NOON, TAB 02/17/24 Esomeprazole Magnesium (Esomeprazole Magnesium) 40 Mg Capsule.dr, 40 MG PO DAILY, CAP 09/28/22 Venlafaxine HCl (Venlafaxine HCl ER) 150 Mg Cap.er.24h, 150 MG PO DAILY, CAPSULE.DR 09/28/22 Levothyroxine Sodium (Levothyroxine) 100 Mcg Capsule, 100 MCG PO ACBKFST, CAP 05/19/20 Past Medical History Past Medical History: Anxiety, Arthritis, Depression, High Cholesterol, Heart Disease, Hypertension, Pneumonia, Other Additional Past Medical Hx: POTS Surgical History: Hysterectomy, Cholecystectomy, Other Surgical History Other: BOWEL RESECTION Family History: Negative Social History: Negative, Lives with family RN Note Reviewed/Agreed w/PFSH: Yes Review of System Dictation CONSTITUTIONAL: NEGATIVE EXCEPT FOR HPI HEAD/FACE: NEGATIVE EXCEPT FOR HPI EENT: NEGATIVE EXCEPT FOR HPI RESPIRATORY: NEGATIVE EXCEPT FOR HPI GASTROINTESTINAL/ABDOMINAL: NEGATIVE EXCEPT FOR HPI GENITOURINARY: NEGATIVE EXCEPT FOR HPI MUSCULOSKELETAL: NEGATIVE EXCEPT FOR HPI LEFT POSTERIOR LATERAL HIP AND PELVIC PAIN INTEGUMENTARY: NEGATIVE EXCEPT FOR HPI NEUROLOGICAL/PSYCH: NEGATIVE EXCEPT FOR HPI HEMATOLOGIC/LYMPHATIC: NEGATIVE EXCEPT FOR HPI ALL SYSTEMS NEGATIVE, EXCEPT NOTED ABOVE. 13 POINT REVIEW OF SYSTEMS ASSESSED AND ALL NEGATIVE EXCEPT FOR ABOVE. Initial Vital Sign VS Vital Signs Date Time Temp Pulse Resp B/P (MAP) Pulse Ox O2 Delivery O2 Flow Rate FiO2 07/07/24 11:32 99.1 118 18 104/87 98 Room Air 0 07/07/24 11:40 21 Physical Exam Dictation VITAL SIGNS REVIEWED GENERAL APPEARANCE: ALERT, ORIENTED X 3, SEVERE ACUTE DISTRESS, WELL DEVELOPED, NOURISHED. OBESE HEAD AND FACE: NON-TRAUMATIC. EYES: PERRL, PINK CONJUNCTIVAS, EYELID NO TRAUMA, ANTERIOR CHAMBER WITH ARCUS SENILIS. EARS: PINNAS INTACT AND NO SIGNS OF TRAUMA OR ERYTHEMA EAR CANALS CLEAR AND NO DISCHARGE TM NO ERYTHEMA NOSE: NO DISCHARGE, NO BLEEDING. OROPHARYNX: MOUTH NORMAL, TONGUE PINK, PHARYNX CLEAR,NO ERYTHEMA, TONSILS NO EXUDATES, NO ABSCESSES NOTED, MUCOUS MEMBRANE MOIST NECK: SUPPLE, NON-TENDER, NO THYROMEGALY, NO MASSES, NO JVD, NO BRUITS BREAST:DEFERRED CHEST:NO TENDERNESS, NO CREPITUS, NO PARADOXICAL MOVEMENT, NO RETRACTIONS LUNGS:CLEAR, WELL-VENTILATED, SYMMETRIC, NO RALES, NO WHEEZING, NO RHONCHI, NO STRIDOR, GOOD BREATH SOUNDS BILATERALLY HEART: REGULAR RATE, REGULAR RHYTHM, NO MURMUR, NO GALLOPS VASCULAR: NO PERIPHERAL EDEMA, ABDOMEN: SOFT, POSITIVE BOWEL SOUNDS, NONDISTENDED, NO GUARDING, NONTENDER, NO REBOUND, NO MASSES NO HEPATOMEGALY, NO SPLENOMEGALY, NO LANDEROS'S SIGN, NO HERNIAS. RECTAL: DEFERRED GENITAL: DEFERRED NEUROLOGICAL: NORMAL SPEECH, MOTOR FUNCTION INTACT, SENSORY FUNCTION INTACT MUSCULOSKELETAL: NECK NONTENDER, FULL RANGE OF MOTION, LEFT DIFFUSE LUMBOSACRAL AND POSTERIOR HIP PAIN TENDERNESS. EXTREMITIES: NONTENDER, FULL RANGE OF MOTION NO SHORTENING OR ROTATION OF LEFT LEG AND FULL WEIGHT-BEARING SKIN: COLOR PINK, DRY, NO TURGOR, NO RASH, NO LACERATIONS, NO ABRASIONS, NO CONTUSIONS. LYMPHATIC: DEFERRED Results (Laboratory/Radiology) Laboratory/Radiology PROCEDURE: LUMB 2 3VW - LUMBAR SPINE 2-3VWS Exam Type: LUMBAR SPINE 2-3VWS Clinical Information: POSTERIOR LEFT HIP PAIN STATUS POST SAME LEVEL FALL YESTERDAY Comparison: None Findings: Exam of the lumbosacral spine demonstrates no evidence of fracture or subluxation. There are moderate spondylitic changes. The facet joints show moderate degenerative changes. The alignment of the spine is normal. Multilevel degenerative disc disease. Bone mineralization is normal. Impression: Spondylitic changes and degenerative changes of the apophyseal joints as noted. FALL YESTERDAY Comparison: None Findings: The bone examination is unremarkable. No fractures or dislocations are seen. No radiopaque foreign bodies are noted. Soft tissues are preserved. IMPRESSION: Normal examination. Labs Reviewed?: Yes ED Course ED Course Orders Procedure Category Date Status Time Cyclobenzaprine Hcl PHA 07/07/24 Complete (Cyclobenzaprine Hcl 11:30 Dexamethasone 4mg/Ml PHA 07/07/24 Complete 1ml Vial (Dexametha 11:30 Ketorolac 60mg/2ml PHA 07/07/24 Complete (Toradol 60mg/2ml) 11:30 Hydrocodone/Apap PHA 07/07/24 Complete 5/325 ([place] 5/325mg) 11:30 Hip Unilat 2-3vw Left RAD 07/07/24 Resulted 11:26 Lumbar Spine 2-3vws RAD 07/07/24 Resulted 11:26 Current Medications Medications (Trade) Dose Ordered Sig/Dannie Route PRN Reason Start Time Stop Time Status Last Admin Dose Admin Acetaminophen/ Hydrocodone Bitart (NORco 5/325MG) 1 tab ONCE ONCE PO 07/07/24 11:30 07/07/24 11:34 DC 07/07/24 12:01 Cyclobenzaprine HCl (Cyclobenzaprine HCl) 10 mg ONCE ONCE PO 07/07/24 11:30 07/07/24 11:34 DC 07/07/24 12:01 Dexamethasone Sodium Phosphate (dexaMETHasone 4MG/ML 1ML VIAL) 8 mg ONCE ONCE IM 07/07/24 11:30 07/07/24 11:34 DC 07/07/24 12:05 Ketorolac Tromethamine (toRADol 60MG/ 2ML) 60 mg ONCE ONCE IM 07/07/24 11:30 07/07/24 11:35 DC 07/07/24 12:02 Vital Signs Date Time Temp Pulse Resp B/P (MAP) Pulse Ox O2 Delivery O2 Flow Rate FiO2 07/07/24 11:40 99.1 115 16 104/85 98 Room Air* 0 21 07/07/24 11:32 99.1 118 18 104/87 98 Room Air 0 1210/PATIENT STATES PAIN IS BEING REDUCED WITH MEDICATIONS. DISCHARGED HOME WITH IBUPROFEN/PREDNISONE/CYCLOBENZAPRINE AND OMEPRAZOLE. Medical Decision Making MDM MEDICAL DISCHARGE MAKING BASED ON X-RAYS LEFT HIP AND LUMBAR SPINE. NO FRACTURES DISCHARGED HOME WITH MULTIPLE MEDICATIONS TO SEE HER DOCTOR ON TUESDAY. DX & DISP Disposition: Discharge Departure Impression: Primary Impression: Contusion of left hip, initial encounter Additional Impressions: Lumbar contusion, Fall Condition: Stable Scripts Prednisone (Prednisone) 20 Mg Tablet 1 TAB PO AD for 6 Days, #14 TAB 0 Refills TAKE 1 TAB BY MOUTH THREE TIMES PER DAY X3 DAYS, THEN TAKE 1 TAB BY MOUTH TWICE A DAY X2 DAYS, THEN TAKE 1 TAB BY MOUTH ONCE A DAY X1 DAY. TAKE WITH FOOD Prov: MADELEINE BARKER NP 07/07/24 Omeprazole (Omeprazole) 40 Mg Capsule.dr 1 CAP PO DAILY for 30 Days, #30 CAP 0 Refills Prov: MADELEINE BARKER NP 07/07/24 Ibuprofen (Ibuprofen 800 mg Tab) 800 Mg Tab 800 MG PO Q8H PRN for fever or pain, #30 TAB 0 Refills Prov: MADELEINE BARKER NP 07/07/24 Cyclobenzaprine HCl (Cyclobenzaprine HCl) 10 Mg Tablet 1 TAB PO TID for muscle spasms for 10 Days, #30 TAB 0 Refills Prov: MADELEINE BARKER NP 07/07/24 Additional Instructions: FOLLOW-UP WITH PRIMARY CARE PROVIDER IN 1 TO 2 DAYS. TAKE MEDICATIONS DIRECTED HERE IN THE EMERGENCY ROOM. OKAY TO CONTINUE HOME MEDICATIONS UNLESS OTHERWISE DISCUSSED DURING YOUR VISIT IN THE EMERGENCY ROOM TODAY. RETURN TO YOUR NEAREST EMERGENCY ROOM IF SYMPTOMS WORSEN OR IF THERE IS NO IMPROVEMENT. CALL 911 IF YOU NEED IMMEDIATE ASSISTANCE. TAKE TYLENOL OR MOTRIN [id number] NEEDED AND IF NO CONTRAINDICATIONS ARE PRESENT. INCREASE ORAL HYDRATION. A WOUND CULTURE OR URINE CULTURE WAS ORDERED HERE IN THE EMERGENCY ROOM DEPARTMENT PLEASE FOLLOW-UP WITH PRIMARY CARE PROVIDER AND ADVISE THEM TO GET REPEAT PORTS FROM OUR FACILITY. IF YOU HAD ANY ANDRES WRAP/SPLINTS THAT WERE APPLIED HERE, PLEASE DO NOT REMOVE THEM UNTIL YOU SEE YOUR PRIMARY CARE OR SPECIALTY. C WARM COMPRESSES TO PAIN THREE TO 4 TIMES A DAY. TAKE IBUPROFEN AND FLEXERIL EVERY8 HOURS FOR THE NEXT TWO DAYS. TAKE PREDNISONE DIRECTED UNTIL GONE WITH FOOD. SEE YOUR PRIMARY CARE DOCTOR FOR FOLLOW UP. DIET AND ACTIVITY TOLERATED Referrals: ELISE HANNA MD (PCP) Time of Disposition: 12:13 I have reviewed the case, and I agree with, Diagnosis and Plan MADELEINE BARKER NP Jul 07, 2024 11:30
[2024-07-07 11:40] VITALS: BP 104/85; PULSE 115; RESP 16; TEMP 99.1; O2SAT 98
[2024-07-07] MEDS: HYDROcodone/APAP 5/325 1 TAB TABLET PO ONE (12:01)
[2024-07-07] MEDS: CYCLOBENZAPRINE HCL 10 MG TABLET PO ONE (12:01)
[2024-07-07] MEDS: ketOROlac 60 MG VIAL (30MG/ML) IM ONE (12:02)
[2024-07-07] MEDS: dexaMETHasone SOD PHOSPHATE 4 MG/ML 1ML VIAL IM ONE (12:05)
--- NOTE | 2024-07-07 12:07 | HMCIMG ---
Exam Type: HIP UNILAT 2-3VW LEFT Clinical Information: POSTERIOR LEFT HIP PAIN STATUS POST SAME LEVEL FALL YESTERDAY Comparison: None Findings: The bone examination is unremarkable. No fractures or dislocations are seen. No radiopaque foreign bodies are noted. Soft tissues are preserved. IMPRESSION: Normal examination.
--- NOTE | 2024-07-07 12:07 | HMCIMG ---
Exam Type: LUMBAR SPINE 2-3VWS Clinical Information: POSTERIOR LEFT HIP PAIN STATUS POST SAME LEVEL FALL YESTERDAY Comparison: None Findings: Exam of the lumbosacral spine demonstrates no evidence of fracture or subluxation. There are moderate spondylitic changes. The facet joints show moderate degenerative changes. The alignment of the spine is normal. Multilevel degenerative disc disease. Bone mineralization is normal. Impression: Spondylitic changes and degenerative changes of the apophyseal joints as noted.
[2024-07-07] MEDS ORDERED: OMEP40CA21 PO (12:14)
[2024-07-07] MEDS ORDERED: IBUP-2077 PO (12:14)
[2024-07-07] MEDS ORDERED: PRED20TA3 PO (12:14)
[2024-07-07] MEDS ORDERED: CYCL-309 PO (12:14)
== END 2024-07-07 12:27 | disposition home or self-care (01) ==
LOC: EDH 11:21
DX: S70.02XA Contusion of left hip, initial encounter (principal); S30.0XXA Contusion of lower back and pelvis, initial encounter; E78.00 Pure hypercholesterolemia, unspecified; F32.A Depression, unspecified; F41.9 Anxiety disorder, unspecified; I11.9 Hypertensive heart disease without heart failure; Z79.899 Other long term (current) drug therapy; Z88.1 Allergy status to other antibiotic agents; Z88.2 Allergy status to sulfonamides; Z90.49 Acquired absence of other specified parts of digestive tract; Z90.710 Acquired absence of both cervix and uterus; W01.0XXA Fall on same level from slipping, tripping and stumbling without subsequent striking against object, initial encounter; Y93.89 Activity, other specified; Y92.89 Other specified places as the place of occurrence of the external cause; Y99.8 Other external cause status
CPT/HCPCS: 99284; 73502; 72100; 96372 ×2; J1100; J1885

== ENCOUNTER 2024-11-18 19:22 | Emergency (ER) | payer MEDICARE, MEDICAID ==
[~2024-11-18] VITALS: Ht 170.2 cm; Wt 113.4 kg
[~2024-11-18 19:22] MED LIST changes: +IBUP-2077 PO; +OMEP40CA21 PO; +PRED20TA3 PO
--- NOTE | 2024-11-18 20:18 | ERN ---
ED Note History of Present Illness Stated Complaint: FALL, RASH Chief Complaint: Multiple Complaints Time Seen by MD: 19:48 Dictation: This is a 68-year-old female who presented to the emergency room with complaints of persistent left thigh pain as well as a diffuse rash all across the back chest and arms which started 2 days ago. She stated that she fell 1-1/2 months ago and was evaluated in the ER and since then she has been experiencing left upper thigh pain. She stated that the ambulation has been painful. During the initial evaluation and x-ray was done and she was cleared. She denied fever chills and rigors Temperature 98.7 pulse 87 respirations 20 blood pressure 145/81 with a pulse oximetry of 98% on room air Chronic medical problems include hypertension, pots, GERD, hypothyroidism, depression and history of neck surgery Allergies: Coded Allergies: sulfamethoxazole (Unverified Allergy, Unknown, MOUTH SWELLS, 01/12/21) trimethoprim (Unverified Allergy, Unknown, MOUTH SWELLS, 01/12/21) Home Meds Active Scripts Loratadine (Loratadine) 10 Mg Tablet, 1 TAB PO DAILY for allergy symptoms for 10 Days, #10 TAB 0 Refills Prov:NORRIS HUMMEL MD 11/18/24 Hydrocortisone (Hydrocortisone 2.5% 28Gm) 2.5 % Cream.gm., 1 APPL TP BID for 7 Days, #60 GM 0 Refills apply to affected area(s) Prov:NORRIS HUMMEL MD 11/18/24 Prednisone (Prednisone) 20 Mg Tablet, 1 TAB PO AD for 6 Days, #14 TAB 0 Refills TAKE 1 TAB BY MOUTH THREE TIMES PER DAY X3 DAYS, THEN TAKE 1 TAB BY MOUTH TWICE A DAY X2 DAYS, THEN TAKE 1 TAB BY MOUTH ONCE A DAY X1 DAY. TAKE WITH FOOD Prov:MADELEINE BARKER NP 07/07/24 Omeprazole (Omeprazole) 40 Mg Capsule.dr, 1 CAP PO DAILY for 30 Days, #30 CAP 0 Refills Prov:MADELEINE BARKER NP 07/07/24 Ibuprofen (Ibuprofen 800 mg Tab) 800 Mg Tab, 800 MG PO Q8H PRN for fever or pat n, #30 TAB 0 Refills Prov:MADELEINE BARKER NP 07/07/24 Cyclobenzaprine HCl (Cyclobenzaprine HCl) 10 Mg Tablet, 1 TAB PO TID for muscle spasms for 10 Days, #30 TAB 0 Refills Prov:MJMADELEINE SUSTAINABILITY COACH 07/07/24 Reported Medications Cyclobenzaprine HCl (Cyclobenzaprine HCl) 10 Mg Tablet, 20 MG PO HS, TAB 02/17/24 Atorvastatin Calcium (Atorvastatin Calcium) 20 Mg Tablet, 20 MG PO HS, TAB 02/17/24 Verapamil HCl (Verapamil ER) 120 Mg Tablet.er, 120 MG PO NOON, TAB 02/17/24 Esomeprazole Magnesium (Esomeprazole Magnesium) 40 Mg Capsule.dr, 40 MG PO DAILY, CAP 09/28/22 Venlafaxine HCl (Venlafaxine HCl ER) 150 Mg Cap.er.24h, 150 MG PO DAILY, CAP UMESH.DR 09/28/22 Levothyroxine Sodium (Levothyroxine) 100 Mcg Capsule, 100 MCG PO ACBKFST, CAP 05/19/20 Past Medical History Past Medical History: Depression, GERD, High Cholesterol, Hypertension, Hypo thyroid, Other Additional Past Medical Hx: POTS, THYROID Surgical History: Hysterectomy, BTL Surgical History Other: NECK DISC SX, ABD Family History: Negative Social History: Negative, Lives with family History: Not Applicable RN Note Reviewed/Agreed w/PFSH: Yes Review of System Dictation Constitutional: Negative for fever,chills, and weight loss Eyes: Negative for injury, pain,redness, and discharge ENT: Negative for injury,pain or swelling Cardiovascular: Negative for chest pain, palpitations, and edema Respiratory: Negative for shortness of breath, cough, and wheezing, Abdomen/GI: Negative for abdominal pain, nausea, vomiting, diarrhea, and constipation Back: Negative for injury and pain : Negative for injury, bleeding and discharge MS/Extremity: Positive for injury about 6 weeks ago and pain in the left thigh Skin: Negative for rash, and discoloration positive for diffuse rash all over the body Neuro: Negative for headache, weakness, numbness, tingling, and seizure Psych: Negative for suicide ideation, homicidal ideation, and hallucinations Initial Vital Sign VS Vital Signs Date Time Temp Pulse Resp B/P (MAP) Pulse Ox O2 Delivery O2 Flow Rate FiO2 11/18/24 19:23 98.8 87 20 145/81 98 Room Air 11/18/24 19:43 0 21 Physical Exam Dictation General: awake, alert, NAD obese female Head/Face: Normocephalic, atraumatic Eyes: PERRL, EOMI, vision at baseline ENT: oral cavity clear, TMs clear, no signs of infection Neck: Trachea midline, supple, no nuchal rigidity Cardiovascular: RRR, normal S1/S2, No MRGs, no JVD Respiratory: CTAB, no respiratory distress, No rales or wheezes Abdomen: Soft, non-tender, non-distended, normal bowel sounds, no guarding or rebound. Skin: Warm, dry, normal turgor, no rash MS/Extremity: Pulses equal, no cyanosis, neurovascular intact, FROM mild tenderness to deep palpation of the left inguinal area no erythema swelling or induration no deformity Neuro: COAx4, GCS 15, strength 5/5, CN 2-12 intact, normal cerebellar exam, normal gait, Psych: Normal behavior, mood, and affect normal Extremities-trace edema without any palpable cords, Homans sign is negative Results (Laboratory/Radiology) Laboratory/Radiology Laboratory Tests Test 11/18/24 20:42 White Blood Count 12.1 K/uL (4.8-10.8) H Red Blood Count 5.10 MIL/uL (4.00-5.50) Hemoglobin 13.6 g/dL (12.0-16.0) Hematocrit 44.5 % (36-48) Mean Corpuscular Volume 87.3 fL (79-99) Mean Corpuscular Hemoglobin 26.7 pg (27.0-33.0) L Mean Corpuscular Hemoglobin Concent 30.6 g/dL (32.0-36.0) L Red Cell Distribution Width 14.1 % (11.0-15.5) Platelet Count 306 K/uL (130-400) Mean Platelet Volume 9.7 fL (7.5-10.5) Immature Granulocyte % (Auto) 0.5 % (0-1) Neutrophils (%) (Auto) 74.7 % (40.0-77.0) Lymphocytes (%) (Auto) 16.6 % (21.0-51.0) L Monocytes (%) (Auto) 4.6 % (3.0-13.0) Eosinophils (%) (Auto) 3.4 % (0.0-8.0) Basophils (%) (Auto) 0.2 % (0.0-5.0) Neutrophils # (Auto) 9.1 K/uL (1.8-7.7) H Lymphocytes # (Auto) 2.0 K/uL (1.0-4.8) Monocytes # (Auto) 0.6 K/uL (0.1-1.0) Eosinophils # (Auto) 0.41 K/uL (0.00-0.70) Basophils # (Auto) 0.02 K/uL (0.00-0.20) Absolute Immature Granulocyte (auto 0.06 K/uL (0-1) Nucleated Red Blood Cells 0.0 % (0.0-0.19) Red Blood Cell Morphology See comments Sodium Level 139 mmol/L (136-145) Potassium Level 4.3 mmol/L (3.5-5.1) Chloride Level 101 mmol/L (101-111) Carbon Dioxide Level 32 mmol/L (21-32) Blood Urea Nitrogen 18 mg/dL (7-18) Creatinine 0.8 mg/dL (0.5-1.0) Glomerular Filtration Rate Calc 80 mL/min (>90) Random Glucose 97 mg/dL (70-105) Total Calcium 8.8 mg/dL (8.5-10.1) Labs Reviewed?: Yes X-RAY Comment: REASON: h/o fall 6 weeks ago. severe left upper thigh pain ORDERING PHYSICIAN: NORRIS HUMMEL MD PROCEDURE: PELVIS - PELVIS 1-2VWS EXAM: CR Pelvis, 1 view CLINICAL HISTORY: Fall. COMPARISON: Radiograph of the pelvis dated 07/07/2024. FINDINGS: No acute fracture or aggressive appearing osseous lesion. Joint spaces are within normal limits. Surgical sutures and clips in the pelvic area. Presumed tiny pelvic phleboliths. IMPRESSION: No acute bony abnormality is evident. No interval changes. /[place] DICTATED BY: AMBER ALLEN Jr., MD DATE: 11/18/242242 ELECTRONICALLY SIGNED BY: AMBER ALLEN Jr., MD DATE: 11/18/242242 EXAM: CR Left Femur, 4 views CLINICAL HISTORY: Fall. COMPARISON: None provided. FINDINGS: No acute fracture or aggressive appearing osseous lesion. Joint spaces are within normal limits. Nonspecific soft tissue calcification is evident lateral to the left hip. IMPRESSION: No acute bony abnormality is evident. /[place] DICTATED BY: AMBER ALLEN Jr., MD DATE: 11/18/242246 ELECTRONICALLY SIGNED BY: AMBER ALLEN Jr., MD DATE: 11/18/242246 ED Course ED Course Orders Procedure Category Date Status Time Cbc With Differential LAB 11/18/24 Complete 20:10 Basic Metabolic Panel LAB 11/18/24 Complete 20:10 Pelvis 1-2vws RAD 11/18/24 Resulted 20:10 Femur 2 Vw Left RAD 11/18/24 Resulted 20:10 Hydralazine 20mg Inj PHA 11/18/24 Complete (Apresoline 20mg In 21:30 Ketorolac PHA 11/18/24 Complete Tromethamine 30mg/Ml 22:00 Loratadine 10 Mg PHA 11/18/24 Complete (Loratadine 10 Mg) 22:30 Current Medications Medications (Trade) Dose Ordered Sig/Dannie Route PRN Reason Start Time Stop Time Status Last Admin Dose Admin Hydralazine HCl (APRESOLine 20MG INJ) 15 mg ONCE ONCE IV 11/18/24 21:30 11/18/24 21:32 DC Ketorolac Tromethamine (toRADol) 30 mg ONCE ONCE IM 11/18/24 22:00 11/18/24 22:01 DC 11/18/24 21:38 Loratadine (LORATAdine 10 mg) 10 mg ONCE ONCE PO 11/18/24 22:30 11/18/24 22:31 DC 11/18/24 22:37 Vital Signs Date Time Temp Pulse Resp B/P (MAP) Pulse Ox O2 Delivery O2 Flow Rate FiO2 11/18/24 23:32 98.4 86 18 128/74 98 Room Air* 0 11/18/24 21:54 80 16 121/73 98 Room Air* 0 11/18/24 19:43 89 16 118/73 98 Room Air* 0 11/18/24 19:23 98.8 87 20 145/81 98 Room Air We will perform diagnostic labs, advanced imaging and administer medications according to the patient's complaint. Once the results are available, will review and personally interpreted the labs to rule out any acute life- threatening emergency the trach require immediate intervention and treatment. I will then re-evaluate the patient after treatment and diagnostic exams have return to determine whether the patient requires any further testing, can safely be discharged home or need further admission to hospital for additional treatment and evaluation. Labs reviewed CBC shows a white count of 12.1 BNP 7 is normal 9:40 p.m. Pelvic and femur x-rays are negative for any acute fracture. I updated the patient on the x-ray results and labs and recommended that she make an appointment with Orthopedics yue. She verbalized full understanding. As to the rash she denied changing the soaps detergents and she does not recall any new foods that she has eaten. I recommended taking Claritin and topical hydrocortisone cream as needed Medical Decision Making MDM Differential diagnosis: Contusion of the left hip and thigh, ligamental tear, hip fracture, pubic rami fracture, hematoma Rationale: Tests considered and ordered secondary to shared decision making include: Previous outside records reviewed: Old ER visits. Risk of complication and/or morbidity or mortality of patient management: None Medications-Per medication reconciliation Need for hospitalization: Patient does not meet criteria for hospitalization. Need for emergency major/minor surgery: No There are no social concerns with this patient. Prescription drug management Prescriptions will include symptomatic care Patient's prior external medical records from other ER visits were reviewed by me as indicated. Prior testing and results from previous visits were reviewed. Prior tests were taken into account with medical decision making and resource utilization, independent historian/historians were used to obtain complete medical history. I independently interpreted the test that were performed, results were reviewed by me and considered findings on radiology if ordered. Medical management and examination interpretation discussions were had by me with other qualified healthcare professionals as indicated for the patient's care. Problem List Problem List: (1) Skin rash (2) Contusion of left thigh (3) Fall DX & DISP Disposition: Discharge Departure Impression: Primary Impression: Contusion of left thigh Additional Impression: Skin rash Condition: Stable Scripts Loratadine (Loratadine) 10 Mg Tablet 1 TAB PO DAILY for allergy symptoms for 10 Days, #10 TAB 0 Refills Prov: NORRIS HUMMEL MD 11/18/24 Hydrocortisone (Hydrocortisone 2.5% 28Gm) 2.5 % Cream.gm. 1 APPL TP BID for 7 Days, #60 GM 0 Refills apply to affected area(s) Prov: NORRIS HUMMEL MD 11/18/24 Additional Instructions: Patient and the caregiver have been informed of all the diagnostic tests and the imaging conducted during the today's visit to the emergency room and has verbalized understanding of the results I have personally reviewed and interpreted all diagnostic exams performed here in the ER today as well as the vital signs documented by the nursing staff. The patient is now being discharged to home and should follow up with the primary care physician or the specialist as directed by the ER staff. Follow-up with primary care provider in 1 to 2 days. Take medications as directed here in the emergency room. Okay to continue home medications unless otherwise discussed during your visit in the emergency room today. Return to your nearest emergency room if symptoms worsen or if there is no improvement. Call 911 if you need immediate assistance. Take Tylenol or Motrin [id number] nter as needed and if no contraindications are present. Increase oral hydration. A wound culture or urine culture was ordered here in the emergency room department please follow-up with primary care provider and advise them to get repeat ports from our facility. If you had any Dane wrap/splints that were applied here, please do not remove them until you see your primary care or s pecialty. Referrals: ELISE HANNA MD (PCP) HE CHAVEZ MD, ANURADHA R MD Nov 18, 2024 20:18
[2024-11-18 20:56] LABS: IMMATURE GRANULOCYTE ABSOLUTE 0.06 K/uL (0-1); NUCLEATED RED BLOOD CELLS 0.0 % (0.0-0.19); PLATELET COUNT (AUTO) 306 K/uL (130-400); RED BLOOD CELL COUNT(AUTO) 5.10 MIL/uL (4.00-5.50); RED CELL DISTRIBUTION WIDTH 14.1 % (11.0-15.5); WHITE BLOOD COUNT (AUTO) 12.1 K/uL (4.8-10.8)
[2024-11-18 21:06] LABS: CREATININE 0.8 mg/dL (0.5-1.0); GLOMERULAR FILTR. RATE CALC 80.0 mL/min (>90); GLUCOSE,RANDOM 97.0 mg/dL (70-105); SODIUM SERUM 139.0 mmol/L (136-145); UREA NITROGEN, BLOOD 18.0 mg/dL (7-18)
--- NOTE | 2024-11-18 21:44 | HMCIMG ---
EXAM: CR Pelvis, 1 view CLINICAL HISTORY: Fall. COMPARISON: Radiograph of the pelvis dated 07/07/2024. FINDINGS: No acute fracture or aggressive appearing osseous lesion. Joint spaces are within normal limits. Surgical sutures and clips in the pelvic area. Presumed tiny pelvic phleboliths. IMPRESSION: No acute bony abnormality is evident. No interval changes. /[place]
--- NOTE | 2024-11-18 21:47 | HMCIMG ---
EXAM: CR Left Femur, 4 views CLINICAL HISTORY: Fall. COMPARISON: None provided. FINDINGS: No acute fracture or aggressive appearing osseous lesion. Joint spaces are within normal limits. Nonspecific soft tissue calcification is evident lateral to the left hip. IMPRESSION: No acute bony abnormality is evident. /[place]
[2024-11-18] MEDS ORDERED: LORA10TA7 PO (22:21)
[2024-11-18] MEDS ORDERED: HYDR28CR51 TP (22:21)
[2024-11-18] MEDS: LORATAdine 10 mg 10 MG TABLET PO ONE (22:37)
[2024-11-18 23:32] VITALS: BP 128/74; PULSE 86; RESP 18; TEMP 98.4; O2SAT 98
== END 2024-11-18 23:43 | disposition home or self-care (01) ==
LOC: EDH 19:22
DX: S70.12XA Contusion of left thigh, initial encounter (principal); R21 Rash and other nonspecific skin eruption; E03.9 Hypothyroidism, unspecified; E78.00 Pure hypercholesterolemia, unspecified; F32.A Depression, unspecified; I10 Essential (primary) hypertension; Z79.899 Other long term (current) drug therapy; Z88.1 Allergy status to other antibiotic agents; Z88.2 Allergy status to sulfonamides; Z90.710 Acquired absence of both cervix and uterus; W18.39XA Other fall on same level, initial encounter; Y93.89 Activity, other specified; Y92.89 Other specified places as the place of occurrence of the external cause; Y99.8 Other external cause status
CPT/HCPCS: 99284; 80048; 85025; 36415; 73552; 72170; 96372; J1885